=== PATIENT | male | born 1975 | race Caucasian/White ===

== ENCOUNTER 2017-11-20 06:22 | Emergency (ER) | payer OTHER ==
[~2017-11-20] VITALS: Ht 185.4 cm; Wt 118.0 kg
[2017-11-20 06:25] VITALS: BP 118/86
[2017-11-20] MEDS ORDERED: PLEASE ENTER ALLERGIES MC SCH (06:30)
[2017-11-20] MEDS ORDERED: DIPH,PERTUSS(ACELL),TET VAC/PF 0.5 ML IM-VACC ONE (06:30)
[2017-11-20] MEDS ORDERED: PLEASE ENTER HEIGHT AND WEIGHT MC SCH (06:30)
== END 2017-11-20 07:29 | disposition home or self-care (01) ==
LOC: ED 07:17
DX: S01.511A Laceration without foreign body of lip, initial encounter (principal); W50.0XXA Accidental hit or strike by another person, initial encounter; Y93.39 Activity, other involving climbing, rappelling and jumping off; Y92.89 Other specified places as the place of occurrence of the external cause; Y99.8 Other external cause status
CPT/HCPCS: 12051; 90471; 90715; 99284